=== PATIENT | female | born 1955 | race American Indian/Alaskan Native ===

== ENCOUNTER 2016-12-09 02:11 | Emergency (ER) | payer OTHER ==
[2016-12-09 03:24] LABS: Basophils % (Auto) 0.1 % (0.0-1.8); Eosinophils % (Auto) 2.9 % (0.0-4.3); Hematocrit 41.6 % (30.3-42.9); Hemoglobin 13.8 gm/dl (10.1-14.3); Mean Corpuscular HGB Conc 33 % (30-34); Mean Corpuscular Hemoglobin 29 pg (28-32); Mean Corpuscular Volume 88 fl (79-97); Platelet Count 212 K/mm3 (140-440); Red Blood Count 4.73 M/mm3 (3.65-5.03); Red Cell Distribution Width 13.1 % (13.2-15.2); White Blood Count 11.8 K/mm3 (4.5-11.0)
[2016-12-09 03:43] LABS: Alanine Aminotransferase 16 units/L (7-56); Albumin 3.5 g/dL (3.9-5); Alkaline Phosphatase 62 units/L (35-129); Anion Gap 16 mmol/L; Bilirubin,Total 0.3 mg/dL (0.1-1.2); Blood Urea Nitrogen 12 mg/dL (7-17); Calcium 9.3 mg/dL (8.4-10.2); Carbon Dioxide 29 mmol/L (22-30); Chloride 103.1 mmol/L (98-107); Glucose 140 mg/dL (65-100); Lipase 42 units/L (13-60); Potassium 3.9 mmol/L (3.6-5.0); Sodium 144 mmol/L (137-145)
[2016-12-09 03:44] LABS: Bacteria,Urine 1+ /HPF (Negative); Bilirubin,Urine NEG (Negative); Blood,Urine NEG (Negative); Ketones,Urine NEG (Negative); Leukocyte Esterase,Urine TR (Negative); Mucus,Urine FEW /HPF; Nitrite,Urine NEG (Negative); Protein,Urine <15 mg/dL mg/dL (Negative); Urobilinogen,Urine < 2.0 mg/dL (<2.0)
[2016-12-09] MEDS ORDERED: BENTYL IM ONE (09:15)
[2016-12-09] MEDS ORDERED: NACL 0.9% 1000 ML 1,000 ML IV ONE (09:15)
[2016-12-09] MEDS ORDERED: PEPCID IV ONE (09:15)
--- NOTE | 2016-12-09 09:16 | Emergency Department Report ---
ED Abdominal Pain HPI - General Chief Complaint: Abdominal Pain Stated Complaint: STOMACH PAIN Time Seen by Provider: 12/09/16 03:44 Source: patient, family Mode of arrival: Ambulatory Limitations: No Limitations - History of Present Illness Initial Comments: This is a 60-year-old female. She is previously unknown to me. Her primary care doctor is Dr. Gordon Past medical history includes diabetes and hypercholesterolemia. Surgical history includes partial abdominal hysterectomy, stent in the right kidney. The patient presents to the ER for abdominal pain. The abdominal pain present for 4 months. It vacillates intermittently. Does not have any exacerbating or relieving factors. Patient has not vomited, there is no irritative or obstructive urinary symptoms. She reports that there is a decrease in the caliber of her stool, and that she feels constipated. Patient hasn't had a colonoscopy in the past 10 years, hasn't had a Pap smear in the past 3-4 years. MD Complaint: abdominal pain -: Gradual, month(s) Location: diffuse Severity: mild Severity scale (0 -10): 5 Quality: aching Consistency: intermittent Improves With: nothing Worsens With: nothing Associated Symptoms: constipation - Related Data Home Medications Medication Instructions Recorded Confirmed Last Taken Alogliptin Helio/Pioglitazone 1 each PO DAILY 12/09/16 12/09/16 Unknown [Oseni 25-30 mg Tablet] Dapagliflozin Propanediol [Farxiga] 10 mg PO DAILY 12/09/16 12/09/16 Unknown Gabapentin [Gralise] 300 mg PO TID PRN 12/09/16 12/09/16 Unknown Glimepiride [Amaryl] 4 mg PO DAILY 12/09/16 12/09/16 Unknown Pitavastatin Calcium [LiVALO] 4 mg PO DAILY 12/09/16 12/09/16 Unknown Previous Rx's Medication Instructions Recorded Last Taken Type Dicyclomine [Bentyl] 10 mg PO QID PRN #20 capsule 12/09/16 Unknown Rx Ondansetron [Zofran Odt] 4 mg PO QID PRN #20 tab.rapdis 12/09/16 Unknown Rx Allergies Allergy/AdvReac Type Severity Reaction Status Date / Time No Known Allergies Allergy Verified 12/09/16 02:45 ED Review of Systems ROS: Stated complaint: STOMACH PAIN Other details as noted in HPI Constitutional: denies: malaise Eyes: denies: vision change ENT: denies: epistaxis Respiratory: denies: cough Cardiovascular: denies: chest pain Gastrointestinal: abdominal pain Genitourinary: denies: urgency, dysuria Musculoskeletal: denies: back pain Skin: denies: lesions Neurological: denies: headache, weakness Psychiatric: denies: depression ED Past Medical Hx - Past Medical History Previous Medical History?: Yes Hx Diabetes: Yes Additional medical history: Recent Abd Pn - Gallstones, - Surgical History Past Surgical History?: No - Social History Smoking Status: Never Smoker Substance Use Type: None - Medications Home Medications: Home Medications Medication Instructions Recorded Confirmed Last Taken Type Alogliptin Helio/Pioglitazone 1 each PO DAILY 12/09/16 12/09/16 Unknown History [Oseni 25-30 mg Tablet] Dapagliflozin Propanediol [Farxiga] 10 mg PO DAILY 12/09/16 12/09/16 Unknown History Dicyclomine [Bentyl] 10 mg PO QID PRN #20 capsule 12/09/16 Unknown Rx Gabapentin [Gralise] 300 mg PO TID PRN 12/09/16 12/09/16 Unknown History Glimepiride [Amaryl] 4 mg PO DAILY 12/09/16 12/09/16 Unknown History Ondansetron [Zofran Odt] 4 mg PO QID PRN #20 tab.rapdis 12/09/16 Unknown Rx Pitavastatin Calcium [LiVALO] 4 mg PO DAILY 12/09/16 12/09/16 Unknown History ED Physical Exam - General Limitations: No Limitations General appearance: alert, in no apparent distress - Head Head exam: Present: atraumatic, normocephalic - Eye Eye exam: Present: normal appearance, EOMI. Absent: nystagmus - ENT ENT exam: Present: normal exam, normal orophraynx, mucous membranes moist, normal external ear exam - Neck Neck exam: Present: normal inspection, full ROM. Absent: tenderness, meningismus - Respiratory Respiratory exam: Present: normal lung sounds bilaterally. Absent: respiratory distress, wheezes, rales, rhonchi, stridor, decreased breath sounds - Cardiovascular Cardiovascular Exam: Present: regular rate, normal rhythm, normal heart sounds. Absent: bradycardia, tachycardia, irregular rhythm, systolic murmur, diastolic murmur, rubs, gallop - GI/Abdominal GI/Abdominal exam: Present: soft, normal bowel sounds. Absent: distended, tenderness, guarding, rebound, rigid, pulsatile mass - Extremities Exam Extremities exam: Present: normal inspection, full ROM, normal capillary refill. Absent: tenderness, pedal edema, joint swelling, calf tenderness - Back Exam Back exam: Present: normal inspection, full ROM. Absent: tenderness, CVA tenderness (R), CVA tenderness (L), muscle spasm, paraspinal tenderness, vertebral tenderness - Neurological Exam Neurological exam: Present: alert, oriented X3, normal gait, other (Extraocular movements intact. Tongue midline. No facial droop. Facial sensation intact to light touch in the V1, V2, V3 distribution bilaterally. 5 and 5 strength in 4 extremities.. Sensation is intact to light touch in 4 extremities.). Absent : motor sensory deficit - Psychiatric Psychiatric exam: Present: normal affect, normal mood - Skin Skin exam: Present: warm, dry, intact, normal color. Absent: rash ED Course Vital Signs 12/09/16 12/09/16 12/09/16 02:20 06:05 09:35 Temperature 98.3 F 97.7 F 98.1 F Pulse Rate 102 H 102 H 97 H Respiratory 20 16 18 Rate Blood Pressure 141/80 Blood Pressure 121/74 157/90 [Right] O2 Sat by Pulse 100 96 97 Oximetry 12/09/16 11:47 Temperature Pulse Rate 68 Respiratory 18 Rate Blood Pressure Blood Pressure 168/96 [Right] O2 Sat by Pulse 95 Oximetry - Reevaluation(s) Reevaluation #1: 12/09/16 10:52 Differential diagnosis: Constipation, malignancy, functional abdominal pain Assessment and plan: 60-year-old female with 4 months of intermittent abdominal pain, reports decreased stool caliber. She is afebrile with reassuring vital signs, laboratory studies are unremarkable, and she is tolerating liquid feeds. I highly doubt acute surgical condition at this time. Patient is not up-to- date with her outpatient cancer screening. She will be treated symptomatically with nonnarcotic medications, we will obtain a CT scan of the abdomen and pelvis , we'll reassess after the initial data points. The risks, benefits, alternatives of CT scan were discussed with the patient, who gave consent and authorized administration of IV contrast. Reevaluation #2: 12/09/16 12:17 ct scan shows no acute findings chronic changes in the right kidney are noted. this is expected given her history She will be discharged with nonnarcotic pain medication, nausea medication, instructions to follow up with outpatient primary care and gastroenterology for screening colonoscopy. Return precautions are reviewed. ED Medical Decision Making - Lab Data Result diagrams: 12/09/16 02:58 12/09/16 02:58 Vital Signs 12/09/16 12/09/16 12/09/16 02:20 06:05 09:35 Temperature 98.3 F 97.7 F 98.1 F Pulse Rate 102 H 102 H 97 H Respiratory 20 16 18 Rate Blood Pressure 141/80 Blood Pressure 121/74 157/90 [Right] O2 Sat by Pulse 100 96 97 Oximetry Lab Results 12/09/16 12/09/16 12/09/16 Range/Units 02:58 02:58 03:15 WBC 11.8 H (4.5-11.0) K/mm3 RBC 4.73 (3.65-5.03) M/mm3 Hgb 13.8 (10.1-14.3) gm/dl Hct 41.6 (30.3-42.9) % MCV 88 (79-97) fl MCH 29 (28-32) pg MCHC 33 (30-34) % RDW 13.1 L (13.2-15.2) % Plt Count 212 (140-440) K/mm3 Lymph % (Auto) 36.1 H (13.4-35.0) % [place] % (Auto) 5.9 (0.0-7.3) % Eos % (Auto) 2.9 (0.0-4.3) % Baso % (Auto) 0.1 (0.0-1.8) % Lymph # 4.2 (1.2-5.4) K/mm3 [place] # 0.7 (0.0-0.8) K/mm3 Eos # 0.3 (0.0-0.4) K/mm3 Baso # 0.0 (0.0-0.1) K/mm3 Seg Neutrophils % 55.0 (40.0-70.0) % Seg Neutrophils # 6.5 (1.8-7.7) K/mm3 Sodium 144 (137-145) mmol/L Potassium 3.9 (3.6-5.0) mmol/L Chloride 103.1 (98-107) mmol/L Carbon Dioxide 29 (22-30) mmol/L Anion Gap 16 mmol/L BUN 12 (7-17) mg/dL Creatinine 0.8 (0.7-1.2) mg/dL Estimated GFR > 60 ml/min BUN/Creatinine Ratio 15.00 % Glucose 140 H (65-100) mg/dL Calcium 9.3 (8.4-10.2) mg/dL Total Bilirubin 0.3 (0.1-1.2) mg/dL AST 14 (5-40) units/L ALT 16 (7-56) units/L Alkaline Phosphatase 62 (35-129) units/L Total Protein 7.0 (6.3-8.2) g/dL Albumin 3.5 L (3.9-5) g/dL Albumin/Globulin Ratio 1.0 % Lipase 42 (13-60) units/L Urine Color Yellow (Yellow) Urine Turbidity Clear (Clear) Urine pH 5.0 (5.0-7.0) Ur Specific [place] 1.020 (1.003-1.030) Urine Protein <15 mg/dl (Negative) mg/dL Urine Glucose (UA) 150 (Negative) mg/dL Urine Ketones Neg (Negative) mg/dL Urine Blood Neg (Negative) Urine Nitrite Neg (Negative) Urine Bilirubin Neg (Negative) Urine Urobilinogen < 2.0 (<2.0) mg/dL Ur Leukocyte Esterase Tr (Negative) Urine WBC (Auto) 13.0 H (0.0-6.0) /HPF Urine RBC (Auto) 2.0 (0.0-6.0) /HPF U Epithel Cells (Auto) 1.0 (0-13.0) /HPF Urine Bacteria (Auto) 1+ (Negative) /HPF Urine Mucus Few /HPF - Radiology Data Radiology results: pending, report reviewed, image reviewed CT scan with IV contrast demonstrates no acute disease. There is a densely calcified granuloma noted in the right lower lobe of the lung , and calcified nodes are noted in the right hilum. The right kidney is smaller than the left, cortical scarring is noted Nonspecific calcifications are noted, CT scan demonstrates no acute findings, small uterine fibroids are noted. Critical care attestation.: If time is entered above; I have spent that time in minutes in the direct care of this critically ill patient, excluding procedure time. ED Disposition Clinical Impression: Abdominal pain Disposition: DISCHARGED TO HOME OR SELFCARE Is pt being admited?: No Does the pt Need Aspirin: No Condition: Stable Instructions: Abdominal Pain (ED) Additional Instructions: Laboratory studies were unremarkable. CT scan did not demonstrate any acute findings that would require emergent surgical intervention or antibiotic therapy. Nonspecific calcification/granulomas noted in the right lower lobe of the lung are noted. Take the pain medication, nausea medication as directed. Have your primary care doctor contact medical records department to obtain formal report of CT scan, and your primary care doctor should further addressed the incidental findings noted in CT scan. I do recommend that you follow-up with a hosiery repairer within the next 4-6 weeks. Patient is over the age of 50 typically require screening colonoscopy to evaluate for possibility of colon cancer/malignancy. Dr. Chen is a local hosiery repairer. Please note that your blood pressure was elevated, and this should be followed up by her primary care doctor within the next 2 weeks. Long-term complications of hypertension/elevated blood pressure includes stroke, heart attack, disability, , paralysis, loss of quality of life. Return to the ER right away with new pain, worsened pain, migration of pain, fevers or chills, intractable nausea or vomiting, inability to tolerate liquid feeds, new, worsening or different symptoms. Prescriptions: Dicyclomine [Bentyl] 10 mg PO QID PRN #20 capsule PRN Reason: Pain Ondansetron [Zofran Odt] 4 mg PO QID PRN #20 tab.rapdis PRN Reason: Nausea Referrals: STELLA GORDON MD [Primary Care Provider] - 3-5 Days GENIE CHEN MD [Staff Physician] - 3-5 Days
[2016-12-09] MEDS ORDERED: NACL ONE (10:44)
[2016-12-09 11:48] VITALS: BP 168/96
--- NOTE | 2016-12-09 12:03 | Cat Scan Report ---
CT of the abdomen and pelvis with IV contrast. History: Abdominal pain. Findings: There is a densely calcified granuloma in the right lower lobe and calcified nodes are seen in the right hilum. The liver is normal in size and configuration with no focal abnormalities. Minimal calcification seen in the anterior spleen which is otherwise normal. The pancreas and gallbladder are unremarkable. The adrenal glands are normal. The right kidney is considerably smaller than the left with areas of cortical scarring. A there is mild right caliectasis. This could be due to chronic pyelonephritis. The left kidney is unremarkable. The a few small nodes are seen in the left periaortic region. A there are several small calcifications within the uterus which is otherwise unremarkable. The adnexal regions are normal. No abnormal fluid collections are seen. There is no mesenteric inflammation. There is no evidence of appendicitis. Impression: No acute findings. Multiple areas of cortical scarring are seen in the right kidney with mild atelectasis and slight atrophy of the right kidney, probably due to chronic nephritis. Small uterine calcifications/fibroids are noted.
== END 2016-12-09 12:38 | disposition home or self-care (01) ==
LOC: ED 02:11
DX: R10.84 Generalized abdominal pain (principal); E11.9 Type 2 diabetes mellitus without complications; Z90.711 Acquired absence of uterus with remaining cervical stump
CPT/HCPCS: 36415; 74177; 80053; 81001; 83690; 85025; 96361; 96372; 96374; 99284; J0500; J7030; Q9967